=== PATIENT | male | born 1945 | race Caucasian/White ===

== ENCOUNTER → 2016-12-28 | Outpatient (CLI) | payer MEDICARE, OTHER ==
[~2016-12-28] MED LIST: ALDACTONE25 MG PO; ALLEGRA180 MG PO; ASPIRIN EC81 MG PO; AZELASTINE137 MCG/0. NS; CLARITIN10 MG PO; COREG25 MG PO; COZAAR100 MG PO; GLUCOPHAGE1000 MG PO; LANTUS (IN100 UNIT/M SUB-Q; LASIX20 MG PO; LIPITOR40 MG PO; LUTEIN20 M1 PO; NIACIN SR 250250 MG PO; OMEGA-3 1,0001 EACH PO; PLAVIX75 MG PO; PRAMOSONE30 G1 TOP; VITAMIN A25000 UNIT PO; VITAMIN C1000 M2 PO; ZANTAC (NON-FO150 MG PO
== END | disposition disaster alternative care site (69) ==
LOC: GAIR 21:40
DX: I21.4 Non-ST elevation (NSTEMI) myocardial infarction (principal); R06.02 Shortness of breath; R07.89 Other chest pain; R05 Cough; Z79.01 Long term (current) use of anticoagulants; Z79.84 Long term (current) use of oral hypoglycemic drugs; Z79.82 Long term (current) use of aspirin; Z79.899 Other long term (current) drug therapy
CPT/HCPCS: A0422; A0431; A0436; J2270; J2405

== ENCOUNTER → 2017-02-16 | Outpatient (CLI) | payer MEDICARE, OTHER ==
[2017-02-16 11:00] LABS: ALBUMIN 3.5 gm/dL (3.5-5.0); ANION GAP 14.3 (10.0-19.0); CREATININE 1.2 mg/dL (0.6-1.3); POTASSIUM 4.3 mMol/L (3.7-5.1); TOTAL BILIRUBIN 0.4 mg/dL (0.0-1.5)
[2017-02-16 11:18] LABS: HEMATOCRIT 33.2 % (37.0-53.0); HEMOGLOBIN 10.7 g/dL (11.0-16.0); MCH 31.1 pg (27.0-34.0); MCHC 32.2 gm/dL (32.0-36.5); MCV 96.5 fl (83.0-98.0); MPV 11.4 fl (9.4-12.4); PLATELET COUNT 243 K/uL (150-450); RBC 3.44 M/uL (3.50-5.50); RDW-CV 14.1 % (11.9-14.6); WBC 5.3 K/uL (4.0-11.0)
[2017-02-16 12:01] LABS: ABSOLUTE NEUTROPHIL CT (ANC) 3.9 K/uL (1.4-9.0); BANDED NEUTROPHIL # 0.2 K/uL (0.0-0.1); BANDED NEUTROPHILS % 3 %; LYMPHOCYTE # 1.2 K/uL (0.8-4.0); LYMPHOCYTE % 23 %; MONOCYTE # 0.2 K/uL (0.0-1.0); SEGMENTED NEUTROPHIL # 3.7 K/uL (1.4-9.0); SEGMENTED NEUTROPHIL % 70 %
== END ==
LOC: LKUC 10:43
PROVIDERS: Urology
DX: R31.0 Gross hematuria (principal)

== ENCOUNTER → 2017-02-16 | Outpatient (CLI) | payer MEDICARE, OTHER | END | disposition disaster alternative care site (69) | LOC: GRAD 11:56 | DX: R31.0 Gross hematuria (principal); N20.0 Calculus of kidney; I51.7 Cardiomegaly; I70.90 Unspecified atherosclerosis; N32.89 Other specified disorders of bladder; Q61.02 Congenital multiple renal cysts ==

== ENCOUNTER 2017-02-17 10:39 | Inpatient (IN) | payer MEDICARE, OTHER ==
[~2017-02-17] VITALS: Ht 174 cm; Wt 83.3 kg
--- NOTE | ~2017-02-17 | OR ---
PATIENT'S NAME: WALDO STAFFORD [facility] AGE: 71 Y [address] ROOM: [place] [address] LOCATION: GPCU ADMIT DATE: 02/17/2017 OR/Procedure Report DISCHARGE DATE: FAMILY PHYSICIAN: Jayson Broderick DO ATTENDING PHYSICIAN: Meka Stewart SURGEON: Meka Stewart MD GOLF CADDIE: DATE OF PROCEDURE: 02/17/2017 PREOPERATIVE DIAGNOSIS: Gross hematuria. POSTOPERATIVE DIAGNOSIS: Gross hematuria. PROCEDURES PERFORMED: Cystoscopy, clot evacuation. ANESTHESIA: MAC. COMPLICATIONS: None. INDICATIONS FOR PROCEDURE: The patient is a 71-year-old male with approximately one-week history of gross hematuria with clots. The patient is currently on Plavix and baby aspirin. The patient denies history of trauma or infection. Abdominal pelvic CT scan revealed possible bladder mass versus clot, and a 5 mm right nonobstructing renal stone. He is also complaining of multiple renal cysts along with gallstones and cardiac enlargement. DETAILS OF PROCEDURE: After informed consent was obtained, the patient was taken to the operating room. A MAC anesthetic was applied and he was placed in a dorsal lithotomy position. The groin area was prepped and draped in normal sterile fashion. Cystoscope was introduced into the urethra and bladder without difficulty. Upon entry into the bladder, the patient was noted to have a fair amount of clot present. An Ellik evacuator was introduced and the clot was irrigated out. The bladder was then reinspected with 30-degree lens and no lesions or masses were noted. I then inspected with 70-degree lens. Again, no lesions, masses, or active bleeding was noted. With the 30 degree lens, I backed the catheter out into the prostate urethra which was mildly enlarged without active bleeding. The bladder was then emptied and the procedure terminated. The patient tolerated the procedure well and was brought to the recovery room in good condition. MEKA STEWART MD PATIENT'S NAME: WALDO STAFFORD [facility] AGE: 71 Y [address] ROOM: [place] [address] LOCATION: GPCU ADMIT DATE: 02/17/2017 OR/Procedure Report DISCHARGE DATE: FAMILY PHYSICIAN: Jayson Broderick DO ATTENDING PHYSICIAN: Meka Stewart/caty /[id number] CC: Vianca Sandoval MD d: 02/17/17 2237 t: 03/09/1702, OPERATIVE SUMMARY
--- NOTE | ~2017-02-17 | CON ---
PATIENT'S NAME: WALDO STAFFORD [facility] AGE: 71 Y [address] ROOM: [place] [address] LOCATION: GPCU ADMIT DATE: 02/17/2017 Consultation DISCHARGE DATE: FAMILY PHYSICIAN: Jayson Broderick DO ATTENDING PHYSICIAN: Dia Akers CONSULTATION/ H AND P. CHIEF COMPLAINT: Acute onset shortness of breath. HISTORY OF PRESENT ILLNESS: This is a 71-year-old male who was admitted for observation after undergoing cystoscopy and clot evacuation, history of possible bladder cancer, seen in consultation today after Rapid Response was called by nursing staff after the patient was noted to have increased work of breathing and shortness of breath. During my evaluation, the patient appeared to be in distress and was complaining of significant shortness of breath and increased work of breathing as well as chest tightness and discomfort, which is generalized. The patient also reported dizziness and lightheadedness. The patient otherwise was awake, alert, and oriented despite his distress and was communicative. Blood pressure on arrival was noted to be 200s/110s; hence, this is a significant increase from what is baseline for the patient. The patient is known to have history of coronary artery disease as well as hypertension. The patient otherwise did not report any cough, abdominal pain, nausea, vomiting, diarrhea, or constipation. Denied any dysuria, frequency, urination, but did report pain around his genitalia from recent cystoscopy that he had done. PAST MEDICAL HISTORY: 1. Coronary artery disease, status post stenting. 2. Hypertension. 3. Hematuria. 4. Bladder mass. FAMILY HISTORY: The patient denies history of hypertension in his parents. SOCIAL HISTORY: No history of smoking, alcohol, or drug use reported. REVIEW OF SYSTEMS: All systems have been reviewed and were negative except as described in the HPI. PHYSICAL EXAMINATION: VITAL SIGNS: Blood pressure 223/110, respiratory rate 39, afebrile, and PATIENT'S NAME: POLO STAFFORDH Andrea [facility] AGE: 71 Y [address] ROOM: [place] [address] LOCATION: GPCU ADMIT DATE: 02/17/2017 Consultation DISCHARGE DATE: FAMILY PHYSICIAN: Jayson Broderick DO ATTENDING PHYSICIAN: Dia Akers saturating 98% on high-flow oxygen. GENERAL: The patient is awake, alert, and oriented x3; however, in significant respiratory distress. HEENT: Moist mucous membranes. No scleral icterus or conjunctival pallor noted. CHEST: Diffuse crackles and increased work of breathing noted. No rhonchi or rales noted. HEART: S1, S2. Regular rate and rhythm. Tachycardic. No murmurs or friction rubs noted. ABDOMEN: Soft, nontender, nondistended. Positive bowel sounds. NEURO: Grossly nonfocal. EXTREMITIES. With trace lower extremity edema. MUSCULOSKELETAL: No joint pain, tenderness, or effusion noted. SKIN: Without rash or lesions. : Remnant bleeding noted around penile meatus. ASSESSMENT AND PLAN: 1. Flash pulmonary edema in the setting of elevated blood pressure and volume overload. The patient is acutely treated with 60 of intravenous Lasix and nitro-paste and p.o. nitro was used showing significant improvement in the patient's blood pressure symptoms. The patient was put on BiPAP and oxygenation was maintained over 90%. At this point, we advised transfer the patient to PCU and continue close monitoring including lowering blood pressure with a nitro infusion to keep it less than 150. The patient is to have cardiac enzymes trended. Chest x-ray is consistent with flash pulmonary edema. EKG nondiagnostic. 2. Acute respiratory failure with hypoxia related to acute pulmonary edema and workup as above. 3. Hypertensive emergency. Management as above as well. 4. Acute congestive heart failure exacerbation. Management as above. Cardiology Dr. Ramirez notified and will see as well. 5. Gross hematuria. The patient is with possible history of bladder cancer. He is status post clot evacuation and cystoscopy today. Dr. Akers is primary on the patient. 6. Deep vein thrombosis prophylaxis. We will use sequential compression devices. Greater than 45 minutes were spent in direct patient care and stabilizing the patient as pertains to his respiratory distress. MD SOHAN COTA/caty PATIENT'S NAME: WALDO STAFFORD [facility] AGE: 71 Y [address] ROOM: [place] [address] LOCATION: GPCU ADMIT DATE: 02/17/2017 Consultation DISCHARGE DATE: FAMILY PHYSICIAN: Jayson Broderick DO ATTENDING PHYSICIAN: Dia Akers /[id number] d: 02/18/17 0130 t: 03/09/17 1521, CONSULTATION REPORT
--- NOTE | ~2017-02-17 | DS ---
PATIENT'S NAME: WALDO STAFFORD [facility] AGE: 71 Y [address] ROOM: [address] [address] LOCATION: GPCU ADMIT DATE: 02/17/2017 Discharge Summary DISCHARGE DATE: 02/19/2017 FAMILY PHYSICIAN: Jayson Broderick DO ATTENDING PHYSICIAN: Dia Akers PRINCIPAL DIAGNOSES: 1. Flash pulmonary edema. 2. Acute hypoxic respiratory failure. 3. Decompensated systolic congestive heart failure. 4. Gross hematuria. HOSPITAL COURSE: This is a 71-year-old male patient of Dr. Akers, initially admitted following a cystoscopy and clot evacuation and workup of gross hematuria. The patient was admitted for observation overnight following his cystoscopy; however, during his day 1 hospital stay, I was involved in his care responding to Rapid Response called after the patient went into an acute respiratory distress and at that time was identified to be in hypertensive urgency and flash pulmonary edema with that. The patient was given a dose of Lasix and blood pressure medications and shortly showed significant improvement in the symptoms. Cardiology consultation was obtained and further workup indicated initially an echo that showed an EF was perhaps 30 to 35%, but Dr. Ramirez later on ordered MUGA scan which showed an EF of over 50%. At this point, the patient's blood pressure medicines have been resumed and titrated with additional spironolactone at 12.5 p.o. daily to be added. The patient's blood pressure has been fairly well controlled at this point and he is ambulating symptom free with no need for supplemental oxygenation. Denies any chest pain or shortness of breath. PHYSICAL EXAMINATION: GENERAL: He is awake, alert, and oriented x3. HEART: S1, S2. Regular rate and rhythm. ABDOMEN: Soft, nontender, and nondistended. EXTREMITIES: Without edema. DISPOSITION: The patient is to follow up with [facility] as soon as possible. Less than 30 minutes were spent in discharge planning and facilitating. MD SOHAN COTA/caty PATIENT'S NAME: WALDO STAFFORD [facility] AGE: 71 Y [address] ROOM: [address] [place], [place] [address] [facility] ADMIT DATE: 02/17/2017 Discharge Summary DISCHARGE DATE: 02/19/2017 FAMILY PHYSICIAN: Jayson Broderick DO ATTENDING PHYSICIAN: Dia Akers /[id number] d: 02/20/17 1139 t: 03/09/17 1524, DISCHARGE SUMMARY
--- NOTE | ~2017-02-17 | CON ---
PATIENT'S NAME: WALDO EVANS [facility] AGE: 71 Y [address] ROOM: [address] [place], [place] [address] LOCATION: GPCU ADMIT DATE: 02/17/2017 Consultation DISCHARGE DATE: FAMILY PHYSICIAN: Jayson Broderick DO ATTENDING PHYSICIAN: Dia Akers DATE OF CONSULTATION: 02/17/[address] Akers. 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 He lives in [place]. He was seen by Dr. Akers, who did a CT scan which showed a possible mass lesion in the bladder. He was asked to come in and had his cystoscopy done today under propofol and ketamine. I am not sure how much fluid he received during the procedure. He was found to have mostly hematoma in the in the bladder and this was washed out. Post procedure the patient around 5 o'clock in the afternoon finished eating and became progressively more and more short of breath without any chest pain, and rapid response team was called in and he was in the early pulmonary edema. His systolic blood pressure was up to 220/110. He was given 60 mg of Lasix IV and nitro paste and transferred over to the PCU and I was asked to see in consultation. Even on direct questioning he denies having any actual chest pains per se. He has a long-standing history of coronary artery disease and had his first NM in 1986, at that time had no interventions done. He had a 2nd NM in 2000, and had 5-vessel bypass grafting. In 2006 he had 3 stents put in and he had apparently another NM sometime in December of this year and underwent another 2 procedures, one was a stent another was a balloon angioplasty in [facility]. I saw in his chart that his EF is about 45% or so approximately. Postprocedure he was doing well, walking up to a mile a day for exercise with no chest pains or shortness of breath. He has been in functional class II with no paroxysmal nocturnal dyspnea or orthopnea. He denies lightheadedness, dizziness, syncope, or presyncope or ankle swelling. The patient has history of hypertension, elevated cholesterol, type 2 diabetes. He does not smoke and his family history is unknown as he is adopted. There is no history of rheumatic fever. He was told of a heart murmur at the age of 13. He had 1st heard of congestive heart failure in 2000. MEDICATIONS: PATIENT'S NAME: WALDO EVANS [facility] AGE: 71 Y [address] ROOM: [place] [address] LOCATION: GPCU ADMIT DATE: 02/17/2017 Consultation DISCHARGE DATE: FAMILY PHYSICIAN: Jayson Broderick DO ATTENDING PHYSICIAN: Dia Akers His medication on admission includes; 1. Clopidogrel 75 mg a day. 2. Aspirin 81 mg a day. 3. Atorvastatin 60 mg every evening. 4. Insulin 30 units every evening. 5. Losartan 100 mg every morning. 6. Metformin 1 g b.i.d. 7. Carvedilol 25 b.i.d. 8. Furosemide 20 mg b.i.d. 9. Fexofenadine 180 mg a day. 10. Vitamin A. 11. Ascorbic acid. 12. Niacin. 13. [place]-3 fatty acids. 14. Loratadine. 15. Ranitidine. 16. Azelastine. 17. Pramosone cream. ALLERGIES: NO KNOWN DRUG ALLERGIES. PAST MEDICAL HISTORY: 1. Hernia surgery. 2. Hepatitis. 3. Fracture of right arm. 4. History of prostate cancer treated with radiation therapy. 5. Melanoma of neck removed. 6. Lumpectomy in the neck. SOCIAL HISTORY: The patient denies abusing alcohol. His appetite and weight are stable. Sleep is fair. FAMILY HISTORY: Adopted. REVIEW OF SYSTEMS: A 12-point review of systems reveal the following positives. 1. Corrective lenses. 2. Hardness of hearing. 3. Macular degeneration. 4. Sinus problems. 5. History of reflux like symptoms in the past. 6. History of pneumonias as a youngster. PATIENT'S NAME: WALDO EVANS [facility] AGE: 71 Y [address] ROOM: [place] [id number] LOCATION: GPCU ADMIT DATE: 02/17/2017 Consultation DISCHARGE DATE: FAMILY PHYSICIAN: Jayson Broderick DO ATTENDING PHYSICIAN: Dia Akers 7. Kidney stone found in the recent evaluation. 8. History of polyps in his colon. PHYSICAL EXAMINATION: GENERAL: The patient is now on BiPAP and fairly comfortable. Oxygen level of 100%. VITAL SIGNS: Blood pressure 160s over 70s, heart rate is in the 70s and 80s and regular, respiration is 18, afebrile. HEENT: Normal. NECK: Supple with no JVD, thyromegaly, lymphadenopathy or carotid bruit. PMI is not well located. First and second heart sounds are regular. There are no added sounds or murmurs. CHEST: Clear to auscultation. ABDOMEN: Soft and nontender. Bowel sounds are normally present. EXTREMITIES: Reveal no edema. CENTRAL NERVOUS SYSTEM: Overall appears to be intact. ASSESSMENT: 1. Acute pulmonary edema post cystoscopy and bladder evacuation for blood clot. 2. His EKG shows nonspecific ST-T wave abnormalities. 3. With diuretics and nitroglycerin patient is already much more comfortable now and has no chest pains. RECOMMENDATIONS: We will rule him out and his chest x-ray already indicates possibly pulmonary edema. We will repeat his echocardiogram and make sure make sure that his EF has not slipped for any reason. Further management will depend on his initial evaluation. Again, I appreciate this opportunity to participate in the care of Mr. Evans. MD ISHAN ACUNA/caty /[id number] d: 02/18/17 0138 t: 02/18/17 1030, CONSULTATION REPORT
--- NOTE | ~2017-02-17 | ECHO ---
Transthoracic Echocardiography Report (TTE) Demographics Patient Name WALDO STAFFORD Date of Study 02/18/2017 Patient Number [id number] Visit Number [id number] Date of 1945 Room Number G6309 Gender Male Number Age 71 year(s) Referring Rinku Doty Power Station Operator Meenu Sanches [facility], Physician MD NANCIE Sawant DO Physician Interpreting Rinku Doty Research Nurse Physician MD Supervising Ordering Rinku Doty MD/MLP Physician Nurse Stress Locker Plant Attendant Conclusions Contractility Score Summary At rest the following contractility abnormalities were noted: Hypokinesis of the Mid danny-septal, the Mid inferior, the Mid infero-lateral, the Apical inferior, the Apical lateral, the Apical anterior, the Basal inferior and the Apical cap segments. Contractility of all other segments appeared normal. Summary The estimated left ventricular ejection fraction is 30-35% with mildly dilated LV.There is moderate diffuse hypokinesia involving most of the LV segments. Mild concentric left ventricular hypertrophy. The left atrium is severely dilated by LA volume index measurement. Mild to moderate MR. There is mild to moderate aortic regurgitation by color Doppler. The aortic valve is mildly sclerotic. Mildly dilated RA. Mild to moderate RV hypokinesia. Mild TR. Procedure Type of Study TTE procedure:2D Echocardiogram. Procedure Date Date: 02/18/2017 Start: 08:06 AM Study Location: Inpatient Portable Technical Quality: Adequate visualization Indications:Dyspnea/SOB. Appropriate Use Criteria: 9 Patient Status: Routine Rhythm: Within normal limits HR: 65 bpm BP: 118/76 mmHg M-Mode/2D Measurements LV Diastolic Dimension: 6.07 cm LV Systolic Dimension: 5.55 cm LV Septum Diastolic: 1.25 cm LV Septum Systolic: 5.96 cm LV PW Diastolic: 1.25 cm AO Root Dimension: 2.4 cm Cardiac Output: 5.49 l/min AV Cusp Separation: 1.3 cm RV Diastolic Dimension: 2.58 cm LA volume: 104 ml IVC Inspiration: 1.42 cm LVOT: 2.1 cm RV Base: 2.66 cm LVOT VTI: 24.4 cm RV Mid: 2.18 cm LV Stroke volume: 84.47 ml TAPSE: 2 cm TDI-S': 6.4 cm/s Doppler Measurements AV Peak Velocity: 1.57 m/s MV Peak E-Wave: 0.69 m/s AV Peak Gradient: 9.86 mmHg MV Peak A-Wave: 1.02 m/s AV Mean Gradient: 5 mmHg MV E/A Ratio: 0.67 LVOT Peak Velocity: 1.05 m/s AV P1/2t: 350 msec MV Deceleration Time: 176 msec TR Velocity:2.58 m/s PV Peak Velocity: 1.28 m/s TR Gradient:26.63 mmHg PV Peak Gradient: 6.55 mmHg Estimated RAP:3 mmHg Estimated PASP: 29.63 mmHg Estimated RVSP: 30 mmHg A' Septal Velocity: 0.07 m/s E' Septal Velocity: 0.03 m/s A' Lateral Velocity: 0.1 m/s E' Lateral Velocity: 0.07 m/s Findings Left Ventricle The estimated left ventricular ejection fraction is 30-35% due to moderate diffuse hypokinesia.WMAs are difficult to comment on.LV internal dimension is mildly increased.Mild concentric left ventricular hypertrophy. Right Ventricle Mild to moderately reduced right ventricular function. Left Atrium The left atrium is severely dilated by LA volume index measurement. Right Atrium The right atrium is mildly dilated. Mitral Valve Mild to moderate mitral regurgitation by color Doppler. Aortic Valve There is mild to moderate aortic regurgitation by color Doppler. The aortic valve is mildly sclerotic. Tricuspid Valve Mild tricuspid regurgitation by color Doppler. Pulmonic Valve Pulmonic valve is not well seen. Pericardial Effusion No evidence of pericardial effusion. Miscellaneous Visualized portions of the aortic root and ascending aorta appear normal in size. Pleural Effusion No evidence of pleural effusion. Contractility Score LV regional wall motion:(0-Non visualized 1-Normal 2-Hypokinesis 3-Akinesis 4-Dyskinesis 5-Aneurysm) Signature dtt: Lalitha Dobbs dtd: 02/18/17 0806 Physician Self Edit
[~2017-02-17 10:39] MED LIST changes: -ALDACTONE25 MG PO
--- NOTE | 2017-02-17 17:27 | NUR ---
Pt here from PACU at 1525. Had MAC anesthetic of propofol and ketamine. He is alert and oriented. Eating supper at this time. BS was 149. Pt denies pain except had burning when tried to void. Voided a few drops of bloody urine. Says will try again soon. Pt BP has been elevated in OR, Pacu and when up here. Last was 214/94. Pt given usual doses of cozaar and coreg at 1720. IV was saline locked. He hasn't been out of bed yet. Pt has orders to be discharged tomorrow after 0800. Pt is diabetic on insulin, prostate CS, [place] with stents in January and past CABG. PACU nurse anesthesia didn't want BP to come down too fast and be too low tomorrow. Had Lopressor in OR. VS routine for now due to BP. First Hrly for you will be at 1925.
--- NOTE | 2017-02-17 19:41 | NUR ---
At 1745, pt called and c/o feeling very SOB. Was pale, having dyspnea, anxious and holding chest. Said some chest discomfort. BP 228/129 HR 100 Sats 79% on R/A, Resp 32. O2 put on at 4 liters. BAG LINER called. See BAG LINER record. Adriana called about 1814 to give her update and inform her pt moving to PCU.
[2017-02-17 19:54] LABS: BASOPHIL % 0.4 %; EOSINOPHIL # 0.1 K/uL (0.0-0.5); HEMOGLOBIN 10.7 g/dL (11.0-16.0); IMMATURE GRANULOCYTE # 0.1 K/uL (0.0-0.3); IMMATURE GRANULOCYTE % 0.5 %; LYMPHOCYTE # 0.8 K/uL (0.8-4.0); LYMPHOCYTE % 7.6 %; MCH 31.6 pg (27.0-34.0); MCHC 32.4 gm/dL (32.0-36.5); MCV 97.3 fl (83.0-98.0); MONOCYTE # 0.7 K/uL (0.0-1.0); MONOCYTE % 6.2 %; MPV 10.3 fl (9.4-12.4); NEUTROPHIL # (ANC) 9.2 K/uL (1.4-9.0); NEUTROPHIL % 84.3 %; NRBC % 0 /100WBC (0-0.00); PLATELET COUNT 219 K/uL (150-450); RBC 3.39 M/uL (3.50-5.50); RDW-CV 14.2 % (11.9-14.6); WBC 10.9 K/uL (4.0-11.0)
[2017-02-17 20:14] LABS: ALBUMIN 3.1 gm/dL (3.5-5.0); ANION GAP 10.2 (10.0-19.0); BLOOD UREA NITROGEN 17 mg/dL (6-24); CALCIUM 8.4 mg/dL (8.5-10.5); CHLORIDE 105 mMol/L (96-110); CO2 30 mMol/L (22-32); CREATININE 1.1 mg/dL (0.6-1.3); ESTIMATED GFR (MDRD EQUATION) > 60; MAGNESIUM 1.9 mg/dL (1.8-2.6); PHOSPHORUS 3.7 mg/dL (2.5-4.9); POTASSIUM 4.2 mMol/L (3.7-5.1); SODIUM 141 mMol/L (135-145)
--- NOTE | 2017-02-18 04:33 | NUR ---
Pt admitted post cysto on MSU. Was a rapid response at shift change. Came to me on bipap at 50% fio2 10/5. He was hypertensive on MSU. He received nitro sl, nitro paste, his home cozar/coreg, and lasix prior to transferring to PCU. A saavedra was placed as well- good output- con't to remain blood/pink. No clots this am. SBP started in 160's currently down to 130's. NSR. Afebrile. Remains on 2L. Attempted to titrate off. pt gets to talking and sats decline. Declines with movement. Trop's are slighlty elevated. Recent [place] in January with stent placement at [facility]. Plan: 2d echo, ekg's, trend trops/labs. ACHS checks
[2017-02-18 07:54] LABS: ANION GAP 10.6 (10.0-19.0); BLOOD UREA NITROGEN 13 mg/dL (6-24); CALCIUM 8.7 mg/dL (8.5-10.5); CHLORIDE 106 mMol/L (96-110); CO2 30 mMol/L (22-32); CREATININE 0.9 mg/dL (0.6-1.3); ESTIMATED GFR (MDRD EQUATION) > 60; MAGNESIUM 2.1 mg/dL (1.8-2.6); POTASSIUM 3.6 mMol/L (3.7-5.1); SODIUM 143 mMol/L (135-145)
[2017-02-18 08:13] LABS: BASOPHIL % 0.4 %; EOSINOPHIL # 0.1 K/uL (0.0-0.5); EOSINOPHIL % 1.4 %; HEMATOCRIT 33.7 % (37.0-53.0); HEMOGLOBIN 10.8 g/dL (11.0-16.0); IMMATURE GRANULOCYTE % 0.4 %; MCH 30.6 pg (27.0-34.0); MCV 95.5 fl (83.0-98.0); MONOCYTE # 0.6 K/uL (0.0-1.0); MONOCYTE % 7.4 %; MPV 10.9 fl (9.4-12.4); NEUTROPHIL # (ANC) 6.7 K/uL (1.4-9.0); NEUTROPHIL % 78.4 %; NRBC % 0 /100WBC (0-0.00); PLATELET COUNT 232 K/uL (150-450); RBC 3.53 M/uL (3.50-5.50); RDW-CV 14.2 % (11.9-14.6); WBC 8.5 K/uL (4.0-11.0)
--- NOTE | 2017-02-18 14:59 | NUR ---
Introduced self and role of care management to patient. He lives with his in [place]. He states that he is able to do all his own ADL's independently. He states that his will be available to assist if needed. He plans on returning home on discharge. He states that he has his car and will be driving himself. He did inquire about advance directives. I gave him a five wishes booklet. He denied any needs at this time. Will continue to follow.
--- NOTE | 2017-02-18 18:13 | NUR ---
Significant Event:Patient has not had any SOB or chest pain. Has been weaned off O2. Saavedra dc'd and is voiding in 150-225 ml amounts. Urine has gotten clearer since saavedra dc'd, was david red with clots noted, at end of shift is pale yellow with slightest pink tinge, no clots. Orthostatic BP neg. Kcl 40 mEq po given twice today. Follow up:MUGA scan tomorrow, and possibly home
--- NOTE | 2017-02-19 04:39 | NUR ---
Pt a/o x4. vss on ra, afebrile. sba. voids per urinal. urine is yellow- no longer pink/bloody. achs checks. currently npo. denies pain plan: muga scan today. ? d/c
[2017-02-19 05:21] LABS: ANION GAP 9.3 (10.0-19.0); CALCIUM 8.7 mg/dL (8.5-10.5); POTASSIUM 4.3 mMol/L (3.7-5.1)
--- NOTE | 2017-02-19 13:10 | NUR ---
Social visit with pt. He is hoping for home. IMM reviewed.
[2017-02-19] MEDS ORDERED: ALDACTONE25 MG PO (15:36)
--- NOTE | 2017-02-19 17:41 | NUR ---
PATIENT DISMISSED TO HOME PER PRIVATE AUTO. PATIENT TRANSFERED TO CAR BY RN. REVIEWED DISMISSAL INSTRUCTIONS WITH PATIENT, HE VERBALIZED UNDERSTANDING. HEART FAILURE EDUCATION SHEETS AND DIABETES EDUCATION REVIEWED WITH PATIENT, STATES HAS NO FURTHER QUESTIONS.
--- NOTE | 2017-02-19 17:43 | NUR ---
PATIENT'S BP AT 11:00 AM ASSESSMENT WAS 186/84, RECHECK 178/112. REPORTED BP TO DR QIU, NEW MEDICATION ORDERED, AND GIVEN. DR GIMENEZ ROUNDED ON PATIENT AND STATED HE WAS OK TO DISMISS FROM CARDIOLOGY ASPECT. DR STEWART NOTIFIED OF THIS, AND HE STATED PATIENT WAS OK FOR DISMISSAL. DR QIU ROUNDED AND DISMISSED PATIENT TO HOME.
== END 2017-02-19 16:00 | disposition disaster alternative care site (69) | DRG 314 ==
LOC: GMSU 10:39 → GSDC 10:39 → G3N 15:25 → GMSU 16:00 → GPCU 18:15 → GSDC 18:30 → GPCU 02-19 16:00
PROVIDERS: Internal Medicine Interventional Cardiology; ADMIT Urology
PROC: 5A09457 Assistance with Respiratory Ventilation, 24-96 Consecutive Hours, Continuous Positive Airway Pressure (ICD-10-PCS; principal; 2017-02-17)
PROC: 0TCB8ZZ Extirpation of Matter from Bladder, Via Natural or Artificial Opening Endoscopic (ICD-10-PCS; principal; 2017-02-17)
DX: I97.131 Postprocedural heart failure following other surgery (principal); J96.01 Acute respiratory failure with hypoxia; I50.23 Acute on chronic systolic (congestive) heart failure; I16.1 Hypertensive emergency; I11.0 Hypertensive heart disease with heart failure; E11.9 Type 2 diabetes mellitus without complications; I25.10 Atherosclerotic heart disease of native coronary artery without angina pectoris; R31.0 Gross hematuria; E78.5 Hyperlipidemia, unspecified; K21.9 Gastro-esophageal reflux disease without esophagitis; I25.2 Old myocardial infarction; Z79.82 Long term (current) use of aspirin; Z79.02 Long term (current) use of antithrombotics/antiplatelets; Z79.4 Long term (current) use of insulin; Z95.1 Presence of aortocoronary bypass graft; Z85.820 Personal history of malignant melanoma of skin; Z86.010 Personal history of colon polyps; Z85.46 Personal history of malignant neoplasm of prostate
CPT/HCPCS: A9560; J1940; J1956; J2001; J7030; Q9967